=== PATIENT | male | born 1960 | race Caucasian/White ===

== ENCOUNTER 2017-03-24 14:07 | Emergency (ER) | payer MEDICAID ==
--- NOTE | 2017-03-24 16:35 | ER Document Report ---
HPI - HPI Patient complains to provider of: Fell due to right knee giving out Onset: Other - Last night at 7 PM Onset/Duration: Sudden Pain Level: 5 Context: 56-year-old male with chronic arthritis needing a right knee replacement fell last night at 7 PM because his right knee buckled. It caused him to fall on his left hip, injured left shoulder, and pull a left groin muscle. He states he is able to bear weight on his right leg but it hurts to bear weight on his left leg. he also wants his chronic 6 year open scar on his back checked because his girlfriend said that it was starting to have a bad odor to it. No fever. His orthopedist is [facility] he lives at [place]. Associated Symptoms: None Exacerbated by: Walking Relieved by: Denies Similar symptoms previously: Yes Recently seen / treated by doctor: No - ROS ROS below otherwise negative: Yes Systems Reviewed and Negative: Yes All other systems reviewed and negative - CARDIOVASCULAR Cardiovascular: DENIES: Chest pain - DERM Skin Color: Normal Past Medical History - General Information source: Patient - Social History Smoking Status: Current Every Day Smoker Frequency of alcohol use: None Drug Abuse: None Occupation: Disabled Lives with: Family Family History: Reviewed & Not Pertinent Patient has suicidal ideation: No Patient has homicidal ideation: No Renal/ Medical History: Denies: Hx Peritoneal Dialysis Musculoskeltal Medical History: Reports Hx Arthritis - Especially bad in the right knee, Reports Hx Musculoskeletal Trauma Psychiatric Medical History: Denies: Hx Obsessive Compulsive Disorder Past Surgical History: Reports: Hx Orthopedic Surgery - Back Vertical Provider Document - CONSTITUTIONAL Agree With Documented VS: Yes Exam Limitations: No Limitations General Appearance: No Apparent Distress - HEENT HEENT: Atraumatic, Normocephalic - NECK Neck: Supple - RESPIRATORY Respiratory: Breath Sounds Normal, No Respiratory Distress O2 Sat by Pulse Oximetry: 98 - CARDIOVASCULAR Cardiovascular: Regular Rate, Regular Rhythm - GI/ABDOMEN Gastrointestinal: Abdomen Soft, Abdomen Non-Tender - MUSCULOSKELETAL/EXTREMETIES Musculoskeletal/Extremeties: Tender - Anterior left shoulder, full range of motion., Edema - Effusion by physical exam that is not hot to his right knee, patellar tendon is intact. Notes: Tender left inguinal groin muscle, mild tender to the left great trochanter, no increased pain with internal/external rotation. Neurovascular intact distal to the right knee, distal to the left shoulder, distal to the left hip. - NEURO Level of Consciousness: Awake, Alert, Appropriate Motor/Sensory: No Motor Deficit, No Sensory Deficit - DERM Integumentary: Warm, Dry Notes: 6 year chronic scar lower thoracic back midline, with 1 cm open area q1 cm deep , which is moist without pus and no malodorous drainage. Culture obtained per patient request Course - Re-evaluation Re-evalutation: 03/24/17 16:48 [place] controlled substance database that he obtained Ultram and oxycodone in January no prescriptions filled in March, history of opiate use recorded on the database for his chronic pain. He was under pain management in the past. 03/24/17 17:59 Patient stating that I did not treat his pain and he is asking for a Toradol injection which I agreed to, he also wants Flexeril for the left groin muscle pull. He does not want a knee immobilizer he states he has a shorter one at home and he plans on seeing his orthopedist at [facility] to follow-up with. He originally asked to see a physician and is okay after we discussed the x-rays and plan of care and treatment. He states he knows exactly what tramadol is and it is not going to work. He asked specifically for flexeril. 03/24/17 18:01 xrays show arthritis changes, nothing acute per radiologist. - Vital Signs Vital signs: Temp Pulse Resp BP Pulse Ox 97.9 F 72 16 121/95 H 98 03/24/17 14:12 03/24/17 14:12 03/24/17 14:12 03/24/17 14:12 03/24/17 14:12 Discharge - Discharge Clinical Impression: chronic back wound, right knee arthritis and effusion, chronic pian, left groin muscle strain, Chronic pain Strain of left hip Qualifiers: Encounter type: initial encounter Qualified Code(s): S76.012A - Strain of muscle, fascia and tendon of left hip, initial encounter Left shoulder strain Qualifiers: Encounter type: initial encounter Qualified Code(s): S46.912A - Strain of unspecified muscle, fascia and tendon at shoulder and upper arm level, left arm , initial encounter Condition: Good Disposition: HOME, SELF-CARE Instructions: Knee Immobilizing Splint ([facility]), Muscle Strain ([facility]), Shoulder Injury ([facility]), Knee Effusion ([facility]), Arthritis ([facility]), Muscle Relaxers ([facility]) Additional Instructions: warm compress to left groin muscle pull see your orthopedic doctor about your right knee replacement put your knee splint on when you get home please use your walker for 4 point stability with this weak knee and left groin pull. the wound culture is pending, will call you if there is any bacteria we need to treat return to er if fever, increased pain, any concerns Please complete the patient satisfaction survey if you get one, and return it.. If you do not receive a survey, then you can go to the [facility] website, [email or web address] and place your comments about your very good care. Thank you very much. It was a pleasure being your medical provider today. Prescriptions: Ibuprofen [Motrin 800 mg Tablet] 800 mg PO Q8HP PRN #30 tablet PRN Reason: Cyclobenzaprine HCl [Flexeril 10 Mg Tablet] 10 mg PO TIDP PRN #20 tablet PRN Reason: Tramadol HCl [Ultram 50 mg Tablet] 50 mg PO ASDIR PRN #20 tablet PRN Reason:
[2017-03-24] MEDS ORDERED: ACETAMINOPHEN 325 MG TABLET PO ONE (16:48)
[2017-03-24] MEDS ORDERED: TRAMADOL HCL 50 MG TABLET PO ONE ×2 (16:48→17:52)
[2017-03-24] MEDS ORDERED: IBUPROFEN 800 MG TABLET PO ONE (16:48)
--- NOTE | 2017-03-24 17:33 | RADIOLOGY REPORT (SQ) ---
EXAM DESCRIPTION: HIP LEFT AP/LATERAL COMPLETED DATE/TIME: 03/24/2017 5:23 pm REASON FOR STUDY: fall COMPARISON: None. NUMBER OF VIEWS: Two views. TECHNIQUE: AP pelvis and additional frog-leg view of the left hip. LIMITATIONS: None. FINDINGS: MINERALIZATION: Normal. LEFT HIP: No fracture or dislocation. No worrisome bone lesions. Moderate degenerative changes note d in the hip joint. RIGHT HIP: No fracture or dislocation. No worrisome bone lesions. [id number] degenerative vega nges PUBIS AND ISCHIUM: No fracture. PELVIS: No fracture. SACRUM: No fracture or dislocation. No worrisome bone lesions. LOWER LUMBAR SPINE: No fracture or dislocation. No worrisome bone lesions. Spondylosis and degenerat kenrick disc disease in the low visualized lumbar spine. SOFT TISSUES: No findings. OTHER: No other significant finding. IMPRESSION: No acute fracture dislocation identified. Degenerative changes noted in both hips left slightly greater than right. TECHNICAL DOCUMENTATION: JOB ID: [id number] [employer]- All Rights Reserved
--- NOTE | 2017-03-24 17:33 | RADIOLOGY REPORT (SQ) ---
EXAM DESCRIPTION: SHOULDER LEFT 2 OR MORE VIEWS COMPLETED DATE/TIME: 03/24/2017 5:23 pm REASON FOR STUDY: fall COMPARISON: None. NUMBER OF VIEWS: Three views. TECHNIQUE: Internal rotation, external rotation, and Y view images acquired of the left shoulder. LIMITATIONS: None. FINDINGS: MINERALIZATION: Normal. BONES: No acute fracture or dislocation. No worrisome bone lesions. JOINTS: No dislocation. VISUALIZED LUNGS AND RIBS: No pneumothorax. No rib fracture. SOFT TISSUES: No radiopaque foreign body. OTHER: No other significant finding. IMPRESSION: NEGATIVE STUDY OF THE LEFT SHOULDER. NO RADIOGRAPHIC EVIDENCE OF ACUTE INJURY. TECHNICAL DOCUMENTATION: JOB ID: [id number] [employer]- All Rights Reserved
--- NOTE | 2017-03-24 17:35 | RADIOLOGY REPORT (SQ) ---
EXAM DESCRIPTION: KNEE RIGHT 4 VIEWS COMPLETED DATE/TIME: 03/24/2017 5:23 pm REASON FOR STUDY: fall COMPARISON: None. NUMBER OF VIEWS: Four views. TECHNIQUE: AP, lateral, and both oblique radiographic images acquired of the right knee. LIMITATIONS: None. FINDINGS: MINERALIZATION: Normal. BONES: No acute fracture or dislocation. There is bony sclerosis involving the medial tibial plateau and medial tibial condyles. JOINT: There is almost complete loss of the medial compartment with associated cortical irregularity and bony sclerosis. Degenerative changes are identified in the patellofemoral compartment. SOFT TISSUES: Soft tissue calcifications are identified in the periarticular region at the level of t he medial compartment and in the suprapatellar region presumably posttraumatic in nature. OTHER: No other significant finding. IMPRESSION: Degenerative changes without evidence for fracture TECHNICAL DOCUMENTATION: JOB ID: [id number] [employer]- All Rights Reserved
[2017-03-24] MEDS ORDERED: KETOROLAC TROMETHAMINE 60 MG/2 ML SDV IM ONE (18:01)
[2017-03-24 18:19] VITALS: BP 120/78
== END 2017-03-24 18:19 | disposition home or self-care (01) ==
LOC: ER 14:07
DX: S76.012A Strain of muscle, fascia and tendon of left hip, initial encounter (principal); S46.912A Strain of unspecified muscle, fascia and tendon at shoulder and upper arm level, left arm, initial encounter; M17.11 Unilateral primary osteoarthritis, right knee; W19.XXXA Unspecified fall, initial encounter; G89.29 Other chronic pain; S21.209A Unspecified open wound of unspecified back wall of thorax without penetration into thoracic cavity, initial encounter; X58.XXXA Exposure to other specified factors, initial encounter; F17.200 Nicotine dependence, unspecified, uncomplicated
CPT/HCPCS: 99283; 96372; 87070; 87205; 87075; 87077; 87186; 73502; 73564; 73030; J3490; J1885; L1830

== ENCOUNTER 2017-10-07 07:25 | Emergency (ER) | payer MEDICAID ==
[2017-10-07 07:34] VITALS: BP 139/82
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
[2017-10-07] MEDS ORDERED: ONDANSETRON 4 MG TAB.RAPDIS PO ONE (08:19)
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
[2017-10-07] MEDS ORDERED: IBUPROFEN 800 MG TABLET PO ONE (09:33)
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
[2017-10-07] MEDS ORDERED: OXYCODONE HCL IR 5 MG TABLET PO ONE (10:40)
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
[2017-10-07] MEDS ORDERED: CLINDAMYCIN HCL 150 MG CAPSULE PO ONE (11:59)
== END 2017-10-07 13:45 | disposition home or self-care (01) ==
LOC: ER 07:25
DX: S02.2XXA Fracture of nasal bones, initial encounter for closed fracture (principal); S02.609A Fracture of mandible, unspecified, initial encounter for closed fracture; S09.93XA Unspecified injury of face, initial encounter; S73.102A Unspecified sprain of left hip, initial encounter; M25.561 Pain in right knee; F17.200 Nicotine dependence, unspecified, uncomplicated; Y04.2XXA Assault by strike against or bumped into by another person, initial encounter; Y92.009 Unspecified place in unspecified non-institutional (private) residence as the place of occurrence of the external cause; Z86.73 Personal history of transient ischemic attack (TIA), and cerebral infarction without residual deficits; Z88.0 Allergy status to penicillin
CPT/HCPCS: 99285; 73502; 73564; 73590; 70450; 70486; 72125; 73700; J3490 ×2; S0119

== ENCOUNTER 2017-10-08 19:21 | Emergency (ER) | payer MEDICAID ==
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
[2017-10-08] MEDS: OXYCODONE-ACETAMINOPHEN 5-325 MG TABLET PO ONE (21:55)
[2017-10-08] MEDS: ONDANSETRON 4 MG TAB.RAPDIS PO ONE (21:56)
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
[2017-10-08 23:51] VITALS: BP 145/85
== END 2017-10-08 23:51 | disposition home or self-care (01) ==
LOC: ER 19:21
DX: M25.471 Effusion, right ankle (principal); M25.461 Effusion, right knee; S02.2XXA Fracture of nasal bones, initial encounter for closed fracture; S02.609A Fracture of mandible, unspecified, initial encounter for closed fracture; Y09 Assault by unspecified means; M79.89 Other specified soft tissue disorders; Z86.718 Personal history of other venous thrombosis and embolism; Z88.0 Allergy status to penicillin
CPT/HCPCS: 99283; 73610; S0119

== ENCOUNTER 2017-10-09 10:43 | Emergency (ER) | payer MEDICAID ==
[2017-10-09 11:09] VITALS: BP 138/84
[2017-10-09] MEDS ORDERED: OXYCODONE-ACETAMINOPHEN 5-325 MG TABLET PO ONE ×2 (12:08→13:48)
[2017-10-09] MEDS ORDERED: ONDANSETRON HCL 8 MG TABLET PO ONE (12:09)
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
== END 2017-10-09 14:05 | disposition home or self-care (01) ==
LOC: ER 10:43
DX: S79.912A Unspecified injury of left hip, initial encounter (principal); S89.91XA Unspecified injury of right lower leg, initial encounter; Y04.0XXA Assault by unarmed brawl or fight, initial encounter; F17.200 Nicotine dependence, unspecified, uncomplicated; Z88.0 Allergy status to penicillin
CPT/HCPCS: 99283; 73502; 73564; S0119